=== PATIENT | male | born 1990 | race Caucasian/White ===

== ENCOUNTER 2025-06-14 16:11 | Emergency (ER) | payer BC ==
[2025-06-14] MEDS: Lidocaine 1% with EPINEPHrine 1:100,000 20 ML MDV INJECT ONE (17:01)
== END 2025-06-14 17:11 | disposition home or self-care (01) ==
LOC: LB.ED 16:11
DX: S80.852A Superficial foreign body, left lower leg, initial encounter (principal); F17.200 Nicotine dependence, unspecified, uncomplicated; Z79.899 Other long term (current) drug therapy; X58.XXXA Exposure to other specified factors, initial encounter
CPT/HCPCS: 99283; J2004